=== PATIENT | female | born 1975 | race Caucasian/White ===

== ENCOUNTER → 2017-01-02 | Outpatient (REF) | payer OTHER ==
[~2017-01-02] MED LIST: /ESOM40CA PO; /METH500TA PO; CITA40TA PO; FENT12DI2 TD; LORA0.5T PO; LORA10TA2 PO; MECL-68 PO; MOME50SP; MULTCAP PO; OXYC7.5T PO; PERCOCET PO; SIMV20TA2 PO; TIZA4CAP3 PO; TIZA4TAB3 PO; TOPA25TA10 PO; VICO5TAB16 PO; ZOLP-189 PO; ambien PO
== END ==
LOC: M SFHCLERA 18:16
PROVIDERS: ATTEND Nurse Practitioner Family
DX: R21 Rash and other nonspecific skin eruption (principal)

== ENCOUNTER → 2020-11-04 | Outpatient (CLI) | payer OTHER ==
[~2020-11-04] MED LIST changes: -/ESOM40CA PO; -/METH500TA PO; +METH1TAB40 PO; +NEXI1CAP3 PO; +OXYC1TAB23 PO; -PERCOCET PO; +TIZA4CAP PO; -TIZA4CAP3 PO; +TOPA1TAB PO; -TOPA25TA10 PO
--- NOTE | 2020-11-04 16:37 | REPVR ---
PROCEDURE INFORMATION: Exam: CT Maxillofacial Without Contrast, Sinus Exam date and time: 11/04/2020 4:12 PM Age: 45 years old Clinical indication: Maxilla pain; Additional info: Chronic pansinusitis TECHNIQUE: Imaging protocol: CT Maxillofacial without contrast. Focus on the sinuses. Axial, coronal and sagittal reformatted images were created and reviewed. Radiation optimization: All CT scans at this facility use at least one of these dose optimization techniques: automated exposure control; mA and/or kV adjustment per patient size (includes targeted exams where dose is matched to clinical indication); or iterative reconstruction. COMPARISON: No relevant prior studies available. FINDINGS: Frontal sinuses: Mild polypoid left inferior frontal sinus mucosal thickening. No air-fluid levels. Ethmoid air cells: Mild to moderate ethmoid mucosal thickening. No air-fluid levels. Sphenoid sinuses: Normal. No air-fluid levels. Maxillary sinuses: Polypoid right greater than left maxillary sinus mucous. No air-fluid levels. Ostiomeatal units partially obstructed. Nasal cavity/Septum: Unremarkable. Orbital cavity: Orbits are normal. Globes are unremarkable. Bones/joints: Unremarkable. Soft tissues: Unremarkable. IMPRESSION: Mild chronic paranasal sinus disease. Electronically signed by: Devin Reina On 11/04/2020 16:37:37 PM
== END ==
LOC: M RAD 15:35
PROVIDERS: ATTEND Otolaryngology
DX: J32.4 Chronic pansinusitis (principal)

== ENCOUNTER → 2021-10-06 | Outpatient (CLI) | payer OTHER ==
[~2021-10-06] MED LIST changes: +PROHANCE 279.3MG/ML 15ML VIAL As Ordered ONE; +PROHANCE 279.3MG/ML 5ML VIAL As Ordered ONE
== END ==
LOC: M RAD 14:58
PROVIDERS: ATTEND Family Medicine
DX: M25.511 Pain in right shoulder (principal); M94.211 Chondromalacia, right shoulder; S43.491A Other sprain of right shoulder joint, initial encounter; X58.XXXA Exposure to other specified factors, initial encounter; Y92.9 Unspecified place or not applicable; Y99.9 Unspecified external cause status; Y93.9 Activity, unspecified; M19.011 Primary osteoarthritis, right shoulder
CPT/HCPCS: 73223; A9576

== ENCOUNTER 2024-08-20 17:05 | Emergency (ER) | payer OTHER ==
[~2024-08-20] VITALS: Ht 162.6 cm; Wt 102.5 kg
[~2024-08-20 17:05] MED LIST changes: -PROHANCE 279.3MG/ML 15ML VIAL As Ordered ONE; -PROHANCE 279.3MG/ML 5ML VIAL As Ordered ONE
[2024-08-20] MEDS: ACETAMINOPHEN 500 MG TAB PO ONE (18:31)
[2024-08-20] MEDS ORDERED: PROBCAP14 PO (18:31)
[2024-08-20] MEDS ORDERED: CLEO300C2 PO (18:31)
[2024-08-20 18:39] VITALS: BP 133/82; TEMP 97.9; O2SAT 96
== END 2024-08-20 18:40 | disposition home or self-care (01) ==
LOC: M ED 17:05
DX: K04.7 Periapical abscess without sinus (principal); R42 Dizziness and giddiness; I95.9 Hypotension, unspecified; F17.200 Nicotine dependence, unspecified, uncomplicated; Z79.899 Other long term (current) drug therapy; Z88.0 Allergy status to penicillin; Z88.2 Allergy status to sulfonamides; Z88.8 Allergy status to other drugs, medicaments and biological substances; Z91.040 Latex allergy status